=== PATIENT | male | born 1990 | race Caucasian/White ===

== ENCOUNTER 2018-01-09 01:47 | Observation (INO) ==
[2018-01-09] MEDS ORDERED: IOPAMIDOL 100 ML BOTTLE IV ONE (01:48)
[2018-01-09] MEDS ORDERED: LACTATED RINGERS 1,000 ML IV ONE (02:01)
[2018-01-09] MEDS ORDERED: HYDROmorphone 2 MG/ML VIAL ONE ×2 (02:26→02:50)
[2018-01-09] MEDS: HYDROmorphone 2 MG/ML VIAL IV PRN ×2 (02:27→02:47)
[2018-01-09] MEDS ORDERED: ONDANSETRON 4 MG/2 ML VIAL IV PRN (02:36)
[2018-01-09 03:44] LABS: ALT/SGPT 35 U/l (0-40); Albumin 4.7 gm/dL (3.2-5.2); Albumin/Globulin Ratio 1.6 (1.0-2.3); Alkaline Phosphatase 75 U/L (39-117); Basophils # (Auto) 0 K/mcL (0.0-0.3); Basophils % (Auto) 0.3 % (0.0-2.0); Blood Urea Nitrogen 15 mg/dl (6-20); Eosinophils # (Auto) 0 K/mcL (0.0-0.7); Eosinophils % (Auto) 0 % (0.0-7.0); Granulocytes % (Auto) 89.9 % (38.0-78.0); Lymphocytes # (Auto) 0.6 K/mcL (1.5-4.8); Lymphocytes % (Auto) 3.5 % (15.5-49.0); Mean Cell Volume 94.3 fL (80.0-100.0); Mean Corpuscular HGB Conc 33.1 g/dL (31.0-36.0); Mean Corpuscular Hemoglobin 31.2 pg (26.0-34.0); Monocytes # (Auto) 1.1 K/mcL (0.1-0.9); Monocytes % (Auto) 6.3 % (1.0-12.0); Platelet Count 199 K/mcL (140-440); RBC 4.77 M/mcL (4.50-5.90); Red Cell Distribution Width 14.1 % (11.5-14.5)
[2018-01-09] MEDS ORDERED: LIDOCAINE 1% 20 ML VIAL SQ ONE (03:54)
[2018-01-09] MEDS ORDERED: HYDROmorphone 2 MG/ML VIAL IV PRN ×2 (05:17→07:41)
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
--- NOTE | 2018-01-09 07:14 | XRay Report ---
CLINICAL INFORMATION: Pneumothorax COMPARISON: None. FINDINGS: There is a 40% right pneumothorax. Minor atelectasis right base. Left lung is well expanded and clear. Cardiomediastinal silhouette is accentuated by suboptimal inspiratory result but within normal limits. Bones and soft tissues normal IMPRESSION: 40% right pneumothorax Interpreted and Authenticated by: Casper Esparza 01/09/18
[2018-01-09] MEDS ORDERED: ACETAMINOPHEN 1,000 MG/100 ML BOTTLE IV PRN (07:35)
[2018-01-09] MEDS: PIPERACILLIN SODIUM/TAZOBACTAM 3.375 GM in DEXTROSE 5% IN WATER 50 ML IV SCH ×4 (07:36→23:32)
--- NOTE | 2018-01-09 08:50 | XRay Report ---
CLINICAL INFORMATION: Follow-up 40% right pneumothorax. Small bore right chest tube placement COMPARISON: 01/09/2018 - 0628 hours preprocedure film FINDINGS: Heart size, mediastinum and pulmonary vessels are normal. The right lung has totally reexpanded with pneumothorax resolution following placement of smallbore right chest tube. Lungs are clear. No effusions IMPRESSION: Complete evacuation of right pneumothorax and reexpansion of the right lung following placement of smallbore right chest tube. Interpreted and Authenticated by: Casper Esparza 01/09/18
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
[2018-01-09 09:37] LABS: Basophils # (Auto) 0 K/mcL (0.0-0.3); Basophils % (Auto) 0.2 % (0.0-2.0); Eosinophils # (Auto) 0 K/mcL (0.0-0.7); Eosinophils % (Auto) 0.1 % (0.0-7.0); Granulocytes % (Auto) 77.4 % (38.0-78.0); Lymphocytes # (Auto) 1.8 K/mcL (1.5-4.8); Lymphocytes % (Auto) 12.1 % (15.5-49.0); Mean Cell Volume 94.2 fL (80.0-100.0); Mean Corpuscular HGB Conc 33.8 g/dL (31.0-36.0); Mean Corpuscular Hemoglobin 31.8 pg (26.0-34.0); Monocytes # (Auto) 1.5 K/mcL (0.1-0.9); Monocytes % (Auto) 10.2 % (1.0-12.0); Platelet Count 186 K/mcL (140-440); RBC 4.38 M/mcL (4.50-5.90); Red Cell Distribution Width 13.8 % (11.5-14.5)
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
[2018-01-09 10:29] LABS: ALT/SGPT 31 U/l (0-40); Albumin 4.1 gm/dL (3.2-5.2); Albumin/Globulin Ratio 1.5 (1.0-2.3); Alkaline Phosphatase 75 U/L (39-117); Bilirubin,Direct < 0.2 mg/dL (0.0-0.3); Blood Urea Nitrogen 12 mg/dl (6-20); Gamma Glutamyl Transpeptidase 21 U/L (8-61); Uric Acid 5.7 mg/dL (2.5-8.0)
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
[2018-01-09] MEDS: oxyCODONE/APAP 10/325MG TABLET PO PRN (23:31)
[2018-01-09] MEDS ORDERED: oxyCODONE/APAP 10/325MG TABLET PO ONE (23:36)
[2018-01-10 05:52] LABS: Basophils # (Auto) 0 K/mcL (0.0-0.3); Basophils % (Auto) 0.2 % (0.0-2.0); Eosinophils # (Auto) 0.2 K/mcL (0.0-0.7); Eosinophils % (Auto) 1.2 % (0.0-7.0); Mean Cell Volume 95.5 fL (80.0-100.0); Mean Corpuscular HGB Conc 32.5 g/dL (31.0-36.0); Monocytes # (Auto) 1.3 K/mcL (0.1-0.9); Monocytes % (Auto) 9.6 % (1.0-12.0); Platelet Count 195 K/mcL (140-440); RBC 4.66 M/mcL (4.50-5.90); Red Cell Distribution Width 13.7 % (11.5-14.5)
[2018-01-10] MEDS: PIPERACILLIN SODIUM/TAZOBACTAM 3.375 GM in DEXTROSE 5% IN WATER 50 ML IV SCH ×2 (06:00→11:52)
[2018-01-10] MEDS: oxyCODONE/APAP 10/325MG TABLET PO PRN ×2 (06:00→09:54)
[2018-01-10] MEDS ORDERED: oxyCODONE/APAP 10/325MG TABLET PO ONE (06:04)
[2018-01-10 06:16] LABS: ALT/SGPT 27 U/l (0-40); Albumin/Globulin Ratio 1.3 (1.0-2.3); Alkaline Phosphatase 70 U/L (39-117); Bilirubin,Direct < 0.2 mg/dL (0.0-0.3); Blood Urea Nitrogen 9 mg/dl (6-20); Gamma Glutamyl Transpeptidase 21 U/L (8-61); Uric Acid 4.3 mg/dL (2.5-8.0)
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
--- NOTE | 2018-01-10 10:23 | XRay Report ---
HISTORY: Follow-up pneumothorax FINDINGS: There is a residual tiny right apical pneumothorax. It has nearly but not completely resolved. There has been improvement since 01/09/18. The percutaneous chest tube remains positioned anterolaterally in the right upper thorax. Since yesterday the patient has developed a thin linear band of discoid atelectasis in the right lower lobe. No pleural effusion is present. The left lung is clear. The heart size is normal. IMPRESSION: Near complete resolution of the right apical pneumothorax. Interpreted and Authenticated by: Landen Houston 01/10/18
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
== END 2018-01-10 14:06 | disposition home or self-care (01) ==
LOC: MEDSUR 01:47 → ED 01:47
PROVIDERS: ADMIT Family Medicine Adult Medicine; ATTEND Surgery